=== PATIENT | male | born 1965 | race Caucasian/White ===

== ENCOUNTER 2017-01-16 20:49 | Emergency (ER) | payer MEDICAID ==
--- NOTE | 2017-01-16 21:03 | Emergency Department Record ---
History of Present Illness - General Chief Complaint: Shortness of breath Stated Complaint: YANE Time Seen by Provider: 01/16/17 20:56 Source: Patient Mode of Arrival: Ambulatory Limitations: No limitations - History of Present Illness Initial Comments: 51 yo male presents from the [facility] with shortness of breath over the last three days. He reports that with nearly any exertion he becomes very short of breath and sweaty. He denies any fevers, chills or significant cough. About 2 weeks ago he had a cold but that resolved. No chest pain. He does have swelling in his lower legs. He states his right leg swells more that his left. He has a history of HTN and DM. He denies history of CAD. He is a smoker. He has smoked about 3 cigarettes a day for many years. No back or abdominal pain. MD Complaint: Shortness of breath -: Days(s) (3) Severity: Moderate Consistency: Intermittent (with exertion) Improves With: Rest Worsens With: Exertion Known History Of: COPD (mild) Associated Symptoms: Edema Treatments Prior to Arrival: None - Related Data Home Medications Medication Instructions Recorded Confirmed Last Taken Clonidine HCl [Catapres] 0.3 mg PO BID 05/12/16 01/16/17 Unknown Furosemide [Lasix] 20 mg PO BID 05/12/16 01/16/17 Unknown Hydrocodone/Acetaminophen [[place] 1 tab PO BID PRN 05/12/16 01/16/17 Unknown 5mg/325mg] Insulin Glargine,Hum.rec.anlog 60 unit SQ QPM 05/12/16 01/16/17 Unknown [Lantus] Lisinopril [Prinivil] 40 mg PO DAILY 05/12/16 01/16/17 Unknown Metformin HCl [Glucophage] 1,000 mg PO BID 05/12/16 01/16/17 Unknown Metoprolol Tartrate [Lopressor] 100 mg PO BID 05/12/16 01/16/17 Unknown Pregabalin [Lyrica] 150 mg PO BID 05/12/16 01/16/17 Unknown Spironolact/Hydrochlorothiazid 1 each PO DAILY 05/12/16 01/16/17 Unknown [Aldactazide 25-25 Tablet] Verapamil HCl [[place] Sr] 240 mg PO QPM 05/12/16 01/16/17 Unknown Hydralazine HCl [Apresoline] 10 mg PO DAILY 01/16/17 01/16/17 Unknown Insulin Aspart [Novolog] 100 units SC ASDIR PRN 30 Days 01/16/17 01/16/17 Unknown Allergies Allergy/AdvReac Type Severity Reaction Status Date / Time Sulfa (Sulfonamide Allergy SWELLING Verified 01/16/17 21:00 Antibiotics) OF THE LIPS Review of Systems Constitutional: Denies: Chills, Fever, Malaise, Night sweats, Weakness Eyes: Denies: Eye discharge, Eye pain, Photophobia, Vision change ENT: Denies: Congestion (two weeks ago he had a cold) Respiratory: Reports: As per HPI, Cough (two weeks ago), Dyspnea. Denies: Hemoptysis, Stridor, Wheezes Cardiovascular: Reports: Dyspnea on exertion, Edema. Denies: Chest pain, Palpitations, Syncope Endocrine: Reports: Fatigue Gastrointestinal: Denies: Abdominal pain, Diarrhea, Nausea, Vomiting Genitourinary: Denies: Dysuria, Frequency, Hematuria Musculoskeletal: Denies: Arthralgia, Back pain, Myalgia, Neck pain Skin: Denies: Bruising, Change in color, Rash Neurological: Denies: Confusion, Headache, Numbness, Tremors, Vertigo, Weakness Psychiatric: Denies: Anxiety Hematological/Lymphatic: Denies: Anemia, Blood Clots, Easy bleeding, Easy bruising, Swollen glands Past Medical History - SOCIAL HISTORY Smoking Status: Current every day smoker Alcohol Use Comment: sober 18yrs Drug Use: None - RESPIRATORY Hx Respiratory Disorders: No - CARDIOVASCULAR Hx Cardio Disorders: No Hx Hypertension: Yes Comment:: poor circulation BLE - NEURO Hx Neuro Disorders: No - GI Hx GI Disorders: No - Hx Genitourinary Disorders: No - ENDOCRINE Hx Endocrine Disorders: No - MUSCULOSKELETAL Hx Musculoskeletal Disorders: No Comment:: ankle and knee porblems. - PSYCH Hx Psych Problems: No - HEMATOLOGY/ONCOLOGY Hx Hematology/Oncology Disorders: No Comment:: fatty tumor posterior neck Family Medical History Hx Cancer: Father Hx Heart Disease: Father Hx HTN: Father Physical Exam - General General Appearance: Alert, Oriented x3, Cooperative, Other (appears short of breath with moving around) Limitations: No limitations - Head Head exam: Normal inspection - Eye Eye exam: Normal appearance, PERRL. negative: Conjunctival injection, Periorbital swelling - ENT ENT exam: Normal exam, Mucous membranes moist Ear exam: Normal external inspection Nasal Exam: Normal inspection Mouth exam: Normal external inspection Teeth exam: Normal inspection - Neck Neck exam: Normal inspection, Full ROM. negative: Tenderness - Respiratory Respiratory exam: Decreased breath sounds. negative: Normal lung sounds bilaterally, Accessory muscle use, Prolonged expiratory, Respiratory distress, Rhonchi, Wheezes - Cardiovascular Cardiovascular Exam: Normal rhythm, Tachycardia. negative: Diastolic murmur, Systolic murmur Peripheral Pulses: 2+: Radial (R), Radial (L) - GI/Abdominal GI/Abdominal exam: Soft, Other (Morbid obesity). negative: Tenderness - Rectal Rectal exam: Deferred - exam: Deferred - Extremities Extremities exam: Normal inspection, Full ROM, Normal capillary refill, Pedal edema (bialteral pedal edema). negative: Tenderness - Back Back exam: Reports: Normal inspection, Full ROM. Denies: Muscle spasm, Rash noted, Tenderness - Neurological Neurological exam: Alert, Normal gait, Oriented X3, Reflexes normal - Psychiatric Psychiatric exam: Normal affect, Normal mood - Skin Skin exam: Dry, Intact, Normal color, Warm Course - Reevaluation(s) Reevaluation #1: The patient was 86% on RA moving from the WC to the bed. He appeared short of breath with the activity 01/16/17 21:04 Reevaluation #2: Chest XR was read as Negative for acute process 01/16/17 21:08 EKG sinus tachycardia, rate 103, intervals QRS 124 Qtc 489, [place] LEFT, ST NS flat lateral T waves. No Old for comparison 01/16/17 21:11 The CBC was reviewed WBC is 19.9 The CMP was reviewed No acute changes with normal renal function and GFR 01/16/17 21:48 Reevaluation #3: The Troponin was elevated at 0.094 The BNP was elevated at 2680 Heparin ordered Reevaluation #4: CT read as extensive bilateral PE's I discussed this with the radiologist I discussed the results with the patient and family I recommend transfer to a hospital with ECHO and a step down unit The patient requests [facility] called and IM paged for transfer 01/16/17 22:47 Telepharmacy Service was consulted for Heparin Drip dosing given the morbid obesity of the patient Recommendation was for 18U/Kg/Hr as was started 01/16/17 23:[address] Medrano of [facility] She will arrange an ICU or stepdown bed at [facility]. 01/16/17 23:21 Reevaluation #5: RN called report to [facility] The patient is doing well No complaints with stable VS No pain or shortness of breath at rest 01/16/17 23:43 Medical Decision Making - Lab Data Result diagrams: 01/16/17 20:58 01/16/17 20:58 Disposition Disposition: Transfer Clinical Impression: Elevated troponin, Elevated brain natriuretic peptide (BNP) level Dyspnea Qualifiers: Dyspnea type: unspecified Qualified Code(s): R06.00 - Dyspnea, unspecified Pulmonary emboli Qualifiers: Pulmonary embolism type: other Chronicity: acute Acute cor pulmonale presence: without acute cor pulmonale Qualified Code(s): I26.99 - Other pulmonary embolism without acute cor pulmonale Disposition: Acute Care Hospital Transfer Transfer To: [facility] Reason For Transfer: Bilateral PE Accepting Physician: Mitchell Time Discussed w/Accepting Physician: 23:21 Condition: (3) Guarded Forms: Patient Portal Access Time of Disposition: 22:50 Quality - Quality Measures Quality Measures: N/A - Blood Pressure Screening Does Patient Have Any of the Following: No Blood Pressure Classification: Hypertensive Reading Systolic Measurement: 144 Diastolic Measurement: 113 Screening for High Blood Pressure: < Pre-Hypertensive BP, F/U Documented > [ [id number]] Pre-Hypertensive Follow-up Interventions: Referral to alternative/primary care provider.
[2017-01-16 21:15] LABS: HEMATOCRIT 42.5 % (42.0-52.0); HEMOGLOBIN 14.2 gm/dl (14.0-18.0); MEAN CORPUSCULAR HEMOGLOBIN 28.7 pg (27-33); MEAN CORPUSCULAR HGB CONC 33.4 g/dl (32-36); MEAN PLATELET VOLUME 11.5 fl (7.4-10.4); PLATELET COUNT 299 K/uL (130-400); RED BLOOD COUNT 4.94 M/uL (4.40-5.70); RED CELL DISTRIBUTION WIDTH 14.1 % (11.5-14.5); WHITE BLOOD COUNT W/O DIFF 19.9 K/uL (4.2-12.2)
[2017-01-16] MEDS: IPRATROPIUM/ALBUTEROL (0.5MG/3MG) NEB INH ONE (21:15)
[2017-01-16 21:22] LABS: ALBUMIN 4.3 gm/dL (3.5-5.0); ALKALINE PHOSPHATASE 84 U/L (38-126); ALT/SGPT 32 U/L (21-72); ANION GAP 14.6 (7-16); AST/SGOT 19 U/L (17-59); BILIRUBIN,TOTAL 0.92 mg/dL (0.2-1.3); BLOOD UREA NITROGEN 15 mg/dL (9-20); CARBON DIOXIDE 27.4 mmol/L (22-30); CREATINE PHOSPHOKINASE 97 U/L (55-170); CREATININE 0.9 mg/dL (0.66-1.25); EST GLOMERULAR FILTRATION RATE > 60 ml/min; GLUCOSE,RANDOM 214 mg/dL (70-110); TOTAL PROTEIN 8.5 gm/dL (6.3-8.2)
[2017-01-16 22:05] LABS: TROPONIN I 0.094 ng/mL (0.00-0.034)
[2017-01-16 22:06] LABS: INR 1.08; PARTIAL THROMBOPLASTIN TIME 32.6 SECONDS (24.5-39.1); PROTHROMBIN TIME (PATIENT) 11.7 SECONDS (9.5-12.1)
[2017-01-16 22:07] LABS: D-DIMER 2.33 mg/L FEU (0-0.59)
[2017-01-16] MEDS ORDERED: HEPARIN SODIUM/D5W 25,000 UNITS/500 ML BAG IV SCH (22:15)
[2017-01-16] MEDS: HEPARIN SODIUM 1000 UNIT/1 ML 10ML VIAL IVP ONE (22:59)
[2017-01-16] MEDS: HEPARIN SODIUM/D5W 25,000 UNITS/500 ML BAG IV SCH (23:00)
--- NOTE | 2017-01-18 20:24 | CT ANGIOGRAM REPORT ---
EXAM: CT ANGIOGRAM CHEST CTA w contrast HISTORY: DIFFICULTY BREATHING. TECHNIQUE: CTA chest performed following IV administration of 100 mL of Omnipaque-350 contrast. Axial images were obtained with coronal and sagittal MIP reconstructions. COMPARISON: None. FINDINGS: There is filling defects associated with the distal pulmonary arteries bilaterally with extension into both upper and lower lobe arterial branches consistent with extensive bilateral pulmonary emboli. Negative for thoracic aortic aneurysm or dissection. No mediastinal or hilar adenopathy. The heart and pericardium are unremarkable. Limited evaluation of the upper abdomen shows fatty infiltrative change to the liver. Osseous structures are grossly intact. The visualized airways are patent. Lungs are clear. IMPRESSION: 1. EXTENSIVE BILATERAL PULMONARY EMBOLI. 2. THIS REPORT WAS CALLED AND DISCUSSED WITH THE E.R. PHYSICIAN BY MYSELF AT 10 :46 P.M. ON 01/16/17. JOB NUMBER: [id number] MTDD
== END 2017-01-17 00:13 | disposition short-term general hospital (02) ==
LOC: ER 20:49
DX: I26.99 Other pulmonary embolism without acute cor pulmonale (principal); R06.02 Shortness of breath; I10 Essential (primary) hypertension; E11.9 Type 2 diabetes mellitus without complications; Z79.4 Long term (current) use of insulin; F17.210 Nicotine dependence, cigarettes, uncomplicated; R79.89 Other specified abnormal findings of blood chemistry
CPT/HCPCS: 99285 ×2; 96365; 96375; 82550; 85730; 85610; 84484; 80053; 85379; 85027; 83880; 71020; 71275; 94640; 93005; 93010; Q9967